=== PATIENT | female | born 1945 | race Asian ===

== ENCOUNTER 2020-12-28 00:20 | Inpatient (IN) | payer MEDICARE, BC, SELFPAY ==
[2020-12-28] VITALS (10 sets, daily range): BP systolic 107–198; BP diastolic 70–111; PULSE 90–121; RESP 12–20; TEMP 36.2–37.2; O2SAT 80–96
--- NOTE | 2020-12-28 00:51 | ED.GENADUL_ITS ---
Discharge Plan Disposition Patient Disposition: [facility] INPATIENT Condition: Stable Discharge Details Chief Complaint: Orthopedic Clinical Impression: Femur fracture, left ED Provider: Rigoberto Dean Home Meds and New Rx's Prescriptions: No Action No Known Home Meds RF: 0 Medical Decision Making This is a 75-year-old female who presents via EMS for left hip pain. Patient was with her daughter this evening who is a nurse, patient was using her walker when she turned/rotated, and suddenly felt pain in her left hip. She slowly slumped to the ground with the help of her daughter. She did not hit her head. She did not strike her left hip. Position of ease was to have her hip flexed, and externally rotated. Patient was given Tylenol via EMS IV, respiratory the ER for further assessment. Physical exam demonstrates a flexed left hip and externally rotated notably. It is crossed over her right leg. Notable deformity of the left femur, as well as suspected dislocation of the left hip. Pulses intact, sensation intact. Patient is notably guarded in her personality. She states very specifically that she does not have much trust in the medical system or hospitals in general. She is not forthcoming about her past medical history, and denies any medical problems. However in discussion with her daughter who is a nurse and who is at bedside, daughter states that the patient does have hypertension, asthma, and for the past few weeks and/or months has been taking oral prednisone for her left hip pain out of concern for sciatica. Daughter states that the patient normally lives alone independently, and does not share much about her medical problems. She lives alone in [place]. ultrasound was performed which identifies femur fracture, and also concern for hip joint abnormality. Patient is unable and/or unwilling to move the leg at this time from the crossed position, we will get a CT scan of the hip and femur. Patient will likely require admission. 1:20 AM While down at CAT scan the patient refused to have the CAT scan. Myself, nursing staff, and the patient's daughter spent a notable amount of time discussing with the patient the importance of imaging for further assessment. Patient refused to move her leg into a straight position, but eventually was agreeable to getting the CAT scan imaging. I did discuss with her the im portance of this imaging and proper positioning, for her safety. She understands this but has a very strong opinion on the matter. 2:30 AM Patient was eventually agreeable to allowing me to manipulate her leg back into position. She did allow me to give 4 mg of morphine, however she refused any sedation otherwise. Patient remains neurovascularly intact. Patient is now agreeable to admission. Discussed the case with Dr. San, he agrees on the need for surgery and agrees with admission here under the medicine team. Discussed the case with Dr. Fay, he agrees with the assessment and plan. I have extensively reviewed the treatment plan with the patient. I have addressed all patient concerns at this time. I have also discussed the plan with the admitting physician and they agree with the current assessment and plan and have agreed to assume responsibility for the patient. All parties demonstrate verbal understanding and agreement with our assessment and plan at this time. The documentation in this chart was dictated using [employer] dictation software. Please excuse any dictation errors. HPI General Date/Time Provider Initiated Documentation: 12/28/20 00:32 . HPI Narrative: This is a 75-year-old female who presents via EMS for left hip pain. Patient was with her daughter this evening who is a nurse, patient was using her walker when she turned/rotated, and suddenly felt pain in her left hip. She slowly slumped to the ground with the help of her daughter. She did not hit her head. She did not strike her left hip. Position of ease was to have her hip flexed, and externally rotated. Patient was given Tylenol via EMS IV, respiratory the ER for further assessment. Related Data Home Medications Medication Instructions Recorded Confirmed Unknown [No Known Home Meds] 12/28/20 12/28/20 Allergies Allergy/AdvReac Type Severity Reaction Status Date / Time No Known Allergies Allergy Unverified 12/28/20 01:57 General Stated Complaint: Orthopedic QUINN: 3 Review of Systems All systems reviewed & are unremarkable except as noted in HPI and below [facility] Social History Smoking/Tobacco Use Status: Never Smoking risk assessment performed?: Yes Alcohol Intake: never Substance use type: does not use Do you feel safe at home: Yes Do you feel safe in your relationship?: Yes Exam Narrative Exam Narrative: 1.Const: Well-nourished, Well-developed, appearing stated age 2.Eyes: PERRL, no conjunctival injection, and symmetrical lids. 3.ENT: Atraumatic external nose and ears. Moist MM. Neck: Symmetric, trachea midline, No thyromegaly. 4.CVS: +S1/S2, No murmurs or gallops. Peripheral pulses 2+ and equal in all ex tremities. Brisk capillary refill in all extremities. 5.RESP: Unlabored respiratory effort. Clear to auscultation bilaterally. No wheezes rales or rhonchi 6.GI: Soft, Nontender/Nondistended, No hepatosplenomegaly. No guarding or rebound. 7.MSK: Patient's left hip is flexed and externally rotated, notable deformity of the left femur, also notable deformity of the left hip. Tenderness in this area. Distal pulses are intact with a +1 pulses at dorsalis pedis and posterior tibial pulse at this time. Capillary refill intact and less than 3 seconds. Sensation intact. 8.Skin: Warm, Dry. No rashes or lesions. 9.Neuro: pattern puncher II-XII grossly intact. Sensation grossly intact, no focal neurologic deficits. 10.Psych: (AAO) x3. Appropriate mood and affect Course Vital Signs Vital signs: Vital Signs Temperature 37.1 C 12/28/20 00:22 Pulse 101 H 12/28/20 00:22 Respiratory Rate 20 12/28/20 00:22 Blood Pressure 198/108 H 12/28/20 00:22 Pulse Oximetry 95 12/28/20 00:22 Temperature 37.1 C 12/28/20 00:22 Temperature Source Skin 12/28/20 00:22 Pulse 101 H 12/28/20 00:22 Respiratory Rate 20 12/28/20 00:22 Respiratory Effort Non-Labored 12/28/20 00:31 Blood Pressure 198/108 H 12/28/20 00:22 Pulse Oximetry 95 12/28/20 00:22 Oxygen Delivery Method Room Air 12/28/20 00:22 Oxygen Flow Rate 0 12/28/20 00:22
--- NOTE | 2020-12-28 00:56 | DI.CT_ITS ---
Exam(s) CT PELVIC WO EXAM: CT PELVIC WO CLINICAL HISTORY: left hip pain, cant move leg, suspect fx/dislocati. TECHNIQUE: Imaging Protocol: Axial computed tomography images with coronal and sagittal reformatted images were created and reviewed CONTRAST MATERIAL: Intravenous: none Oral: None COMPARISON: No exams were available for comparison FINDING: PELVIS: OSSEOUS: There is no acute appearing angulated fracture in the proximal diaphysis of the left femur. The inter trochanteric and femoral neck regions are intact.. Opposite-right hip and visualized righ t femur appear intact. No sacral fractures. There is an acute appearing fracture of the right transverse process of L3. Nonacute appearing fract ures of the left transverse process is of L1 and L of the of L2 and L3 are noted. 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 No evidence of paraspinal hematoma nor free flui d nor hematoma elsewhere in the pelvis. The urinary bladder is distended. Uterus and adnexal region s are age-appropriate. No intrapelvic nor inguinal adenopathy. No evidence of bowel wall nor mesent segundo hematoma. Visualize lower aspect of the kidneys unremarkable. ANTERIOR ABDOMINAL WALL/GI:No evidence of significant anterior abdominal wall nor inguinal hernia in the pelvis evident. IMPRESSION: 1. Acute angulated fracture of the proximal left femur. 2. Fracture of the right transverse process of L3. 3. Other transverse process discontinuities which may or may not be posttraumatic. RADIATION DOSE DELIVERED: Total DLP DATA REPOSITORY: All CT scans at this facility are submitted to the National Radiology Data Registry (NRDR) Dose Index Registry (DIR) with the [employer] (ACR). RADIATION OPTIMIZATION: All CT scans at this facility use at least one of these dose optimization te chniques: automated exposure control; mA and/or kV adjustment per patient size (includes targeted exa ms where dose is matched to clinical indication); or iterative reconstruction.
--- NOTE | 2020-12-28 02:11 | DI.VRAD_ITS ---
PROCEDURE INFORMATION: Exam: CT Pelvis Without Contrast Exam date and time: 12/28/2020 1:04 AM Age: 75 years old Clinical indication: Pelvic pain and other: Left femur; Patient HX: Left hip pain, cant move leg, suspect fx/dislocati TECHNIQUE: Imaging protocol: Computed tomography images of the pelvis without contrast. Radiation optimization: All CT scans at this facility use at least one of these dose optimization techniques: automated exposure control; mA and/or kV adjustment per patient size (includes targeted exams where dose is matched to clinical indication); or iterative reconstruction. COMPARISON: No relevant prior studies available. FINDINGS: Stomach and bowel: Visualized small bowel and colon are unremarkable. Appendix: No evidence of appendicitis. Intraperitoneal space: Unremarkable. No free air. No significant fluid collection. Lymph nodes: Unremarkable. No enlarged lymph nodes. Urinary bladder: Normal. No mass. Reproductive: Normal as visualized. Bones/joints: Acute fracture of the left proximal femoral metadiaphysis. Age-indeterminate fracture clinically correlate. of the right L3 transverse process. Degenerative change of the lumbar spine with scoliosis. Soft tissues: Unremarkable. IMPRESSION: 1. Acute fracture of the left proximal femoral metadiaphysis. 2. Age-indeterminate fracture clinically correlate. of the right L3 transverse process. Dictated and Authenticated by: Efren Ugalde MD. Ordering:JOSE Franklin MD
--- NOTE | 2020-12-28 02:32 | W.PM.HP.N ---
Date of service: 12/28/20 Time of Service: 02:33 Assessment and Plan Assessment and plan (1) Fracture, femur closed, shaft: Start date: 12/28/20 Status: Acute Assessment and plan: This is a 75-year-old lady who was visiting her daughter and had a nontraumatic fracture of her left femur with simply turning while walking with a walker. She also has evidence of transverse processes fracture which is old over her back and may be secondary to moderate trauma. She had no trauma or fall during this episode. She was very hesitant to receive care but did have imaging confirming proximal femur shaft fracture. She will be seen by orthopedics after medically cleared with the patient appears to have increased bronchospasm presently and uncontrolled hypertension. Her EKG was interpreted by the ED physician has no acute changes. She is a full code. Qualifiers: Encounter type: initial encounter Fracture morphology: unspecified fracture morphology Laterality: left Qualified Code(s): S72.302A - Unspecified fracture of shaft of left femur, initial encounter for closed fracture (2) HTN (hypertension): Status: Chronic Assessment and plan: Chronic hypertension with patient on amlodipine by history and is to receive 5 mg of this medication with adjustment of medical therapy perioperatively by the hospitalist. If possible we should obtain her outpatient [place] list which is vague and on for. I will check on level and repeat EKG. Qualifiers: Hypertension type: essential hypertension Qualified Code(s): I10 - Essential (primary) hypertension (3) Asthma exacerbation: Status: Chronic Assessment and plan: Patient is having significant bronchospasm presently and states that allergies during the spring bother her more. She does not admit to chronic asthma treatment but does take rescue inhalers at home. She is on prednisone chronically for back and hip pain but also may take this for allergies. She is a vague historian. Forward chest x-ray will be obtained and we will give albuterol nebulizers with close follow-up. Qualifiers: Asthma severity: moderate Asthma persistence: persistent Qualified Code(s): J45.41 - Moderate persistent asthma with (acute) exacerbation History of Present Illness History of Present Illness Chief Complaint: Left hip pain Narrative: This is a 75-year-old female patient who lives in [place] but was visiting her daughter locally when she fell acute left hip pain with rotating while walking with her walker. She did not fall but was gently brought to the ground and EMS was called. She was brought to the ED for evaluation and was found to have her left hip flexed and partially externally rotated for comfort. She was refusing most care and was very vague with her history. She has no known home medication list though it is known that she takes prednisone ad carleen. as she needs for back pain and sciatica recently she does appear to have a aaron facies and appears of chronic steroid use. She also has asthma and does takes inhalers without a known home medication list. She does not sound like she takes controller inhaler but only rescue inhalers. Her smoking history is negative for primary or secondary exposure. Patient offers no further history is very vague and appears to guard or avoid conversation about medical problems. The blood said that she mistrust the medical system. She has a heavy accent and is [place] by history. Patient's daughter does give a history of patient being on amlodipine at an unknown dose for hypertension and the patient admits that she does use inhalers at home. Her home medication list is unknown. Review of Systems Narrative: 13 point review of systems otherwise unrevealing or stable. [facility] Medical History (Updated 12/28/20 @ 07:06 by Jun Fay) HTN (hypertension) Social History Smoking/Tobacco Use Status: Never Smoking risk assessment performed?: Yes Alcohol Intake: never Substance use type: does not use Do you feel safe at home: Yes Do you feel safe in your relationship?: Yes Meds Allergies and Home Medications Allergies Allergy/AdvReac Type Severity Reaction Status Date / Time No Known Allergies Allergy Unverified 12/28/20 01:57 Home Medications Medication Instructions Recorded Confirmed Type Unknown [No Known Home Meds] 12/28/20 12/28/20 History Exam Narrative Exam Narrative: General: Patient appears appropriate for age, small body build with diffuse muscle wasting and appearance of aaron facies as if on chronic steroids. Affect is anxious with poor focus and patient is poor historian. She has pressured speech. There may be a language barrier during conversation. She is in moderate distress with her left hip pain. She is alert and oriented at least to person and place. HEENT: Normocephalic, aaron facies, eyes with pupils equal and reactive light symmetrically, extraocular movement intact and sclera anicteric. External nose and ears normal. Oropharynx with moist mucosa. Neck: Supple without JVD. Back: Stooped posture with no CVA tenderness. Lungs: Diffuse inspiratory and expiratory coarse crackles with slight pursed lip breathing, increased expiratory phase with expiratory wheeze diffusely. No focalizing rales. No rhonchi. Fair aeration with bronchovesicular breath sounds diffusely. Heart: Distant heart sounds, regular rate and rhythm with no murmurs or gallops appreciated. Breast: Exam deferred. Abdomen: Soft, nontender to palpation with no palpable hepatosplenomegaly. Bowel sounds positive in all quadrants. Genitalia/rectal: Exam deferred. Extremities: Without clubbing, cyanosis or pitting edema. Left hip is partially flexed with pillow and externally rotated for comfort. Peripheral pulses intact. No joint swelling. Skin: Pale, warm and dry. No rashes noted. Neuro: Cranial nerves II through XII intact, no focalizing motor deficits. Psych: Anxious affect with pressured speech, no apparent depressed mood. No abnormal thought processes. Remote and recent memory appear to be grossly intact though patient is very vague in conversation which may be partially secondary to language barrier. Results Imaging Imaging Studies: Exam: CT Pelvis Without Contrast Exam date and time: 12/28/2020 1:04 AM Age: 75 years old Clinical indication: Pelvic pain and other: Left femur; Patient HX: Left hip pain, cant move leg, suspect fx/dislocati TECHNIQUE: Imaging protocol: Computed tomography images of the pelvis without contrast. Radiation optimization: All CT scans at this facility use at least one of these dose optimization techniques: automated exposure control; mA and/or kV adjustment per patient size (includes targeted exams where dose is matched to clinical indication); or iterative reconstruction. COMPARISON: No relevant prior studies available. FINDINGS: Stomach and bowel: Visualized small bowel and colon are unremarkable. Appendix: No evidence of appendicitis. Intraperitoneal space: Unremarkable. No free air. No significant fluid collection. Lymph nodes: Unremarkable. No enlarged lymph nodes. Urinary bladder: Normal. No mass. Reproductive: Normal as visualized. Bones/joints: Acute fracture of the left proximal femoral metadiaphysis. Age-indeterminate fracture clinically correlate. of the right L3 transverse process. Degenerative change of the lumbar spine with scoliosis. Soft tissues: Unremarkable. IMPRESSION: 1. Acute fracture of the left proximal femoral metadiaphysis. 2. Age-indeterminate fracture clinically correlate. of the right L3 transverse process. Dictated and Authenticated by: Efren Ugalde MD. Labs Result diagrams: 12/28/20 02:50 12/28/20 02:50 Last Vital Signs Temp 37.1 C 12/28/20 00:22 Pulse 98 H 12/28/20 01:52 Resp 16 12/28/20 01:52 BP 166/111 H 12/28/20 01:52 Pulse Ox 96 12/28/20 01:52
[2020-12-28 02:55] LABS: Source Nasal/Nares
[2020-12-28 02:57] LABS: Abs Immature Grans 0.13 10^3/uL (0.0-0.06); Absolute Basophil Count 0.04 10^3/uL (0.0-0.2); Absolute Monocyte Count 0.51 10^3/uL (0.1-0.8); Basophils % 0.2; HCT 35.8 % (36.0-46.0); HGB 12.1 g/dL (11.2-15.7); Immature Grans % 0.7; Lymphocytes % 2.1; MCH 30.3 pg (27.0-33.0); MCHC 33.8 % (32.0-36.0); MCV 89.7 fL (80-95); MPV 8.8 fL (8.0-11.0); Monocytes % 2.8; Neutrophils % 94.2; Nucleated RBC 0 %; Platelet Count 276 10^3/uL (130-400); RBC 3.99 10^6/uL (3.93-5.22); RDW 13.4 % (11.7-14.6); RDW-SD 44.3 fL; WBC 18.32 10^3/uL (4.4-10.8)
[2020-12-28 03:00] LABS: Absolute Lymphocyte Count 0.38 10^3/uL (1.2-3.4); Absolute Neutrophil Count 17.26 10^3/uL (1.2-6.7)
[2020-12-28 03:07] LABS: BUN 27 mg/dL (7-18); Calcium 8.5 mg/dL (8.5-10.1); Chloride 102 mmol/L (98-107); Estimated GFR 53.91 (mL/min/1.73m2); Glucose 166 mg/dL (74-106); Sodium 143 mmol/L (136-145)
[2020-12-28 03:08] LABS: Potassium 2.5 mmol/L (3.5-5.1)
[2020-12-28] MEDS: diazePAM 10 MG/2 ML SYR 5 MG IVP (03:23)
[2020-12-28 03:37] LABS: Bilirubin Negative (Negative); Blood Negative (Negative); Clarity Clear (Clear); Glucose 250 mg/dL (Negative); Ketones Negative (Negative); Leukocyte Esterase Negative (Negative); Nitrite Negative (Negative); Specific Gravity 1.025 (1.005-1.025); Urobilinogen 0.2 EU/dL (Up TO 0.2)
[2020-12-28] MEDS: POTASSIUM CHLORIDE 20 MEQ/100 ML BAG 50 MEQ IVPB (03:39)
[2020-12-28] MEDS: Normal Saline 500 ML 30 ML IV ×2 (03:41→07:14)
[2020-12-28 03:49] LABS: Bacteria Few HPF (Negative); C & S Indicated? Yes; Casts 3-5 Hyaline LPF (Negative); Crystals Negative HPF (Negative); Epithelial Cells Negative HPF (Negative); Mucus Trace (Negative)
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
[2020-12-28] MEDS: Albuterol 2.5 MG/3 ML INH SOLN VIAL UPD ×2 (06:49→14:02)
--- NOTE | 2020-12-28 07:15 | DI.RAD_ITS ---
Exam(s) XR PORTABLE CHEST AP EXAM: XR PORTABLE CHEST AP CLINICAL HISTORY: Bronchospasm with rales. TECHNIQUE: 2D digital imaging was performed. COMPARISON: No exams were available for comparison FINDINGS: Heart size is normal. The mediastinum is not widened. There is infiltrate in the right parahilar region. Left lung is clear. No pleural effusions. No pn eumothorax. Chest leads in place IMPRESSION: Right parahilar infiltrate. Infectious versus neoplasm. No pleural effusions. DATA REPOSITORY: RADIATION DOSE DELIVERED: All CT scans at this facility use at least one of these dose optimization techniques: automated exposure control; mA and/or kV adjustment per patient size (includes targeted e xams where dose is matched to clinical indication); or iterative reconstruction.
[2020-12-28] MEDS: Normal Saline Flush 10 ML SYR IVP ×2 (07:16→11:04)
[2020-12-28 07:17] LABS: Abs Immature Grans 0.12 10^3/uL (0.0-0.06); Absolute Basophil Count 0.06 10^3/uL (0.0-0.2); Absolute Lymphocyte Count 1.44 10^3/uL (1.2-3.4); Absolute Monocyte Count 0.69 10^3/uL (0.1-0.8); Basophils % 0.3; Eosinophils % 0.5; HCT 36.8 % (36.0-46.0); HGB 12.3 g/dL (11.2-15.7); Immature Grans % 0.6; Lymphocytes % 6.9; MCH 30.2 pg (27.0-33.0); MCHC 33.4 % (32.0-36.0); MCV 90.4 fL (80-95); MPV 9.1 fL (8.0-11.0); Monocytes % 3.3; Neutrophils % 88.4; Nucleated RBC 0 %; Platelet Count 290 10^3/uL (130-400); RBC 4.07 10^6/uL (3.93-5.22); RDW 13.5 % (11.7-14.6); RDW-SD 44.1 fL; WBC 20.82 10^3/uL (4.4-10.8)
[2020-12-28 07:22] LABS: ALT 40 U/L (14-59); AST 19 U/L (15-37); Albumin 3.2 g/dL (3.4-5.0); Alkaline Phosphatase 44 U/L (46-116); Anion Gap 7.9 mmol/L (3-11); BUN 28 mg/dL (7-18); Bilirubin, Total 0.6 mg/dL (0.2-1.0); CO2 30.1 mmol/L (21.0-32.0); CREATININE 0.9 mg/dL (0.55-1.02); Calcium 8.3 mg/dL (8.5-10.1); Chloride 105 mmol/L (98-107); Glucose 152 mg/dL (74-106); Potassium 3.2 mmol/L (3.5-5.1); Sodium 143 mmol/L (136-145); Total Protein 5.8 g/dL (6.4-8.2)
[2020-12-28 07:46] LABS: NT-proBNP 424 pg/mL (<300)
[2020-12-28 07:48] LABS: Magnesium 2.1 mg/dL (1.8-2.4); TSH (W/Ref FT4) 0.22 uIU/mL (0.36-3.74); Troponin I < 0.05 ng/mL (<0.06)
[2020-12-28 08:22] LABS: FREE T4 1.27 ng/dL (0.76-1.46)
[2020-12-28] MEDS: cefTRIAXone 2 GM/50 ML BAG IVPB (09:20)
[2020-12-28] MEDS: Potassium Chloride 20 MEQ TABCR 40 MEQ PO (09:21)
[2020-12-28 09:27] LABS: Procalcitonin < 0.1 ng/mL
[2020-12-28 09:52] LABS: COVID-19 PCR Negative (Negative)
[2020-12-28] MEDS: MORPHine 4 MG/ML SYR IVP (11:04)
[2020-12-28] MEDS: Omnipaque 350 MG/ML 100 ML BTL 60 ML IJ (11:27)
[2020-12-28] MEDS: Normal Saline - Diluent 50 ML VIAL IV (11:27)
--- NOTE | 2020-12-28 11:35 | DI.CT_ITS ---
Exam(s) CT CHEST PE CTA EXAM: CT CHEST PE CTA CLINICAL HISTORY: hyoxia, pneumonia. TECHNIQUE: Imaging Protocol: CT angiography of the chest was performed using pulmonary embolus isaiah col. Multi planar reconstructions were performed. CONTRAST MATERIAL: Intravenous: Omnipaque 350 Contrast volume: 60 cc COMPARISON: No exams were available for comparison FINDINGS: CHEST: PULMONARY ARTERIES: There are no intraluminal filling defects to suggest acute pulmonary emboli. LUNGS: There is prominent infiltrate in the right upper lobe posterior segment as well as in the supe rior segment of the right lower lobe and also involving the posterior and lateral basal segments of t he right lower lobe. No pleural effusion.. In the opposite-left lung there is mild patchy infiltrate in the left upper lobe as well as left lowe r lobe including the posterior basal segment. No pleural effusion. MEDIASTINUM: Large retrocardiac hiatal hernia is noted. There is no obvious hilar nor mediastinal joesph nopathy. No axillary adenopathy. No supraclavicular adenopathy. CARDIAC: Heart size is upper normal. There is no pericardial effusion.Caliber of the thoracic aorta is within normal limits. There is no significant shift of the interventricular septum. PARTIALLY VISUALIZED UPPERMOST ABDOMEN: No obvious findings OSSEOUS: There are multiple healing left rib fractures involving the posterior aspect of left ribs nu mbers 9, 10, 11, and 12. Also fracture nondisplaced of the left transverse process of L1, as well as the partially visualized-partially included L2.There is also a nonacute appearing compression fractur e of what is probably L1.. IMPRESSION: 1. No evidence of acute pulmonary emboli..Main finding here are bilateral infiltrates as described ab ove, more prominent on the right than the left side involving both the right upper and right lower lo bes and with also significant involvement of the left lung as described above. There are no associate d pleural effusions nor intrathoracic adenopathy. 2. Moderate-large retrocardiac hiatal hernia is noted. 3. Multiple healing left-sided rib fractures involving ribs 9 through 12, inclusive as well as the vi sualized ipsilateral left transverse processes of L1 and L2. Cannot tell below this level as is not i ncluded in the field of view. There is also a nonacute appearing compression fracture of what is eith er T12 or L1. RADIATION DOSE DELIVERED: 321.65mGy.cm Total DLP DATA REPOSITORY: All CT scans at this facility are submitted to the National Radiology Data Registry (NRDR) Dose Index Registry (DIR) with the [employer] (A[employer]). RADIATION OPTIMIZATION: All CT scans at this facility use at least one of these dose optimization te chniques: automated exposure control; mA and/or kV adjustment per patient size (includes targeted exa ms where dose is matched to clinical indication); or iterative reconstruction.
[2020-12-28] MEDS: predniSONE 20 MG TAB 40 MG PO (11:39)
[2020-12-28] MEDS: QUEtiapine 25 MG TAB PO (11:39)
[2020-12-28] MEDS: AZITHROMYCIN 500 MG in Normal Saline 250 ML 250 MG IVPB (13:45)
--- NOTE | 2020-12-28 14:43 | DSE_ITS ---
Date of service: 12/28/20 Time of Service: 14:43 DS: Diagnosis Discharge Diagnosis (1) Fracture, femur closed, shaft: Status: Acute (2) HTN (hypertension): Status: Chronic (3) Asthma exacerbation: Status: Chronic Discharge Plan Disposition Patient Disposition: OTHER Condition: Stable Discharge Details Reason For Visit: FEMUR SHAFT FRACTURE, Pneumonia Admit Date/Time: 12/28/20 02:19 Admit Provider: Jun Fay Attending Provider: Jun Fay Primary Care Provider: Chely,Local Hospital Course Hospital Course: This is a 75-year-old female patient who lives in [place] but was visiting her daughter locally when she fell acute left hip pain with rotating while walking with her walker.? She did not fall but was gently brought to the ground and EMS was called.? She was brought to the ED for evaluation and was found to have her left hip flexed and partially externally rotated for comfort.? She was refusing most care and was very vague with her history.? She has no known home medication list though it is known that she takes prednisone ad carleen and prn albuterol MDI for asthma.?Her daughter also thought she was taking amlodipine but the patient denied this. Her smoking history is negative for primary or secondary exposure.? Patient offers no further history is very vague and appears to guard or avoid conversation about medical problems.? Her daughter, who is a nurse, said that her mother mistrusts the medical system.? She has a heavy accent and is Irish by history. Her WBC count was 20.82. Hgb 12.3. Creatinine 0.9. RA O2 saturation of 80; improved to low 90's with 2L supplemental O2. CXR showed L perihilar infiltra te. CT chest was negative for pulmonary emboli. The main findings were bilateral infiltrates; most prominently in the right upper lobe and lower lobe, but also in the left upper lobe. Also noted were healing left-sided rib fxs 9-12 and left transverse processes of L1 and L2 fxs The pt did incur a fall several months ago and fracture her wrist. Anesthesia at [facility] was concerned about her respiratory status and felt surgery would be best performed at a tertiary center with anesthesiologists and pulmonologists in house. She was accepted at [facility] in [facility] under the care of the spitalist team. The admitting physician is Dr. Valerio. Both her daughter and son were involved in the discussion of her care. The family would prefer that upon d/c from [facility] the patient return to [place], [place] to stay with the daughter and receive home health nursing and PT. Home Meds and New Rx's Prescriptions: No Action No Known Home Meds RF: 0 Discharge Instructions Activity:: Bedrest Equipment/Supplies:: No Equipment Needed Diet:: As Tolerated Discharge Orders Discharge Orders: Discharge Order (Routine); Ordered 12/28/20 Ordered By: Vasquez Headley DS: Summary Time Spent with Patient providing and/or coordinating discharge services: Greater than 30 minutes Status at Discharge Functional status at discharge: bed bound Overall status at discharge: patient is not back to baseline Mental Status: mental status grossly normal Speech and Movement: speech clear Mood: anxious mood Affect: blunted Exam Psych Mental Status: mental status grossly normal Speech and Movement: speech clear Mood: anxious mood Affect: blunted DS: Data Vitals/I&O Vitals and I&O: Vital Signs Temperature 36.5 C 12/28/20 11:38 Temperature Source Temporal Artery Scan 12/28/20 11:38 Pulse 113 H 12/28/20 11:38 Pulse Rhythm Regular 12/28/20 10:00 Respiratory Rate 18 12/28/20 11:38 Respiratory Effort Non-Labored 12/28/20 10:00 Respiratory Depth Normal 12/28/20 10:00 Respiratory Pattern Normal 12/28/20 10:00 Blood Pressure 133/81 12/28/20 11:38 Pulse Oximetry 92 12/28/20 11:38 Oxygen Delivery Method Nasal Cannula 12/28/20 11:38 Oxygen Flow Rate 2 12/28/20 11:38 Pain Level 1 12/28/20 11:38 Comment 12/28/20 08:30 Intake & Output 12/27/20 12/28/20 12/28/20 23:59 11:59 23:59 Intake Total 117.5 / 117.5 Output Total 450 / 550 100 / 550 Balance -332.5 / -432.5 -100 / -432.5 Weight 44.5 kg Intake: IV 117.5 / 117.5 Output: Urine 450 / 550 100 / 550 Other: Urine Color Yellow Dark [place] Urine Appearance Clear Clear Data Completed and Pending Labs on day of discharge: Labs from last 24 hours 05/12/28/20 12/28/20 Unknown 07:16 06:36 WBC RBC Hgb Hct MCV MCH MCHC RDW Plt Count MPV Immature Gran % Neutrophils % Lymphocytes % Monocytes % Eosinophils % Basophils % Nucleated RBC % Absolute Neutrophils Absolute Lymphocytes Absolute Monocytes Absolute Eosinophils Absolute Basophils Cord ABG pH Cancelled Cord ABG pCO2 Cancelled Cord ABG pO2 Cancelled Cord ABG Base Excess Cancelled Sodium Potassium Chloride Carbon Dioxide Anion Gap BUN Creatinine Estimated GFR/1.73 m2 Glucose Hemoglobin A1c Calcium Magnesium Total Bilirubin AST ALT Alkaline Phosphatase Troponin I NT-Pro-B Natriuret Pep Total Protein Albumin Procalcitonin < 0.1 TSH Free T4 Urine Color Urine Clarity Urine pH Ur Specific [place] Urine Protein Urine Ketones Urine Blood Urine Nitrite Urine Bilirubin Urine Urobilinogen Ur Leukocyte Esterase Urine RBC Urine WBC Ur Epithelial Cells Urine Crystals Urine Bacteria Urine Casts Urine Mucus Ur Culture Indicated? Urine Glucose COVID-19 Source SARS-CoV-2 (PCR) Patient ABO/Rh AB Positive Antibody Screen Negative 12/28/20 12/28/20 12/28/20 06:36 06:36 06:36 WBC 20.82 H RBC 4.07 Hgb 12.3 Hct 36.8 MCV 90.4 MCH 30.2 MCHC 33.4 RDW 13.5 Plt Count 290 MPV 9.1 Immature Gran % 0.6 Neutrophils % 88.4 Lymphocytes % 6.9 Monocytes % 3.3 Eosinophils % 0.5 Basophils % 0.3 Nucleated RBC % 0 Absolute Neutrophils 18.40 H Absolute Lymphocytes 1.44 Absolute Monocytes 0.69 Absolute Eosinophils 0.10 Absolute Basophils 0.06 Cord ABG pH Cord ABG pCO2 Cord ABG pO2 Cord ABG Base Excess Sodium 143 Potassium 3.2 L Chloride 105 Carbon Dioxide 30.1 Anion Gap 7.9 BUN 28 H Creatinine 0.9 Estimated GFR/1.73 m2 >= 60.00 Glucose 152 H Hemoglobin A1c Calcium 8.3 L Magnesium Total Bilirubin 0.6 AST 19 ALT 40 Alkaline Phosphatase 44 L Troponin I < 0.05 NT-Pro-B Natriuret Pep 424 H Total Protein 5.8 L Albumin 3.2 L Procalcitonin TSH Free T4 Urine Color Urine Clarity Urine pH Ur Specific [place] Urine Protein Urine Ketones Urine Blood Urine Nitrite Urine Bilirubin Urine Urobilinogen Ur Leukocyte Esterase Urine RBC Urine WBC Ur Epithelial Cells Urine Crystals Urine Bacteria Urine Casts Urine Mucus Ur Culture Indicated? Urine Glucose COVID-19 Source SARS-CoV-2 (PCR) Patient ABO/Rh Antibody Screen 12/28/20 12/28/20 12/28/20 06:36 03:30 02:50 WBC 18.32 H RBC 3.99 Hgb 12.1 Hct 35.8 L MCV 89.7 MCH 30.3 MCHC 33.8 RDW 13.4 Plt Count 276 MPV 8.8 Immature Gran % 0.7 Neutrophils % 94.2 Lymphocytes % 2.1 Monocytes % 2.8 Eosinophils % 0.0 Basophils % 0.2 Nucleated RBC % 0 Absolute Neutrophils 17.26 H Absolute Lymphocytes 0.38 L Absolute Monocytes 0.51 Absolute Eosinophils 0.00 Absolute Basophils 0.04 Cord ABG pH Cord ABG pCO2 Cord ABG pO2 Cord ABG Base Excess Sodium Potassium Chloride Carbon Dioxide Anion Gap BUN Creatinine Estimated GFR/1.73 m2 Glucose Hemoglobin A1c Calcium Magnesium 2.1 Total Bilirubin AST ALT Alkaline Phosphatase Troponin I NT-Pro-B Natriuret Pep Total Protein Albumin Procalcitonin TSH 0.22 L Free T4 1.27 Urine Color Yellow Urine Clarity Clear Urine pH 7.0 Ur Specific [place] 1.025 Urine Protein 30 H Urine Ketones Negative Urine Blood Negative Urine Nitrite Negative Urine Bilirubin Negative Urine Urobilinogen 0.2 Ur Leukocyte Esterase Negative Urine RBC 3-5 H Urine WBC 3-5 Ur Epithelial Cells Negative Urine Crystals Negative Urine Bacteria Few Urine Casts 3-5 hyaline Urine Mucus Trace Ur Culture Indicated? Yes Urine Glucose 250 H COVID-19 Source SARS-CoV-2 (PCR) Patient ABO/Rh Antibody Screen 12/28/20 12/28/20 12/28/20 02:50 02:45 02:30 WBC RBC Hgb Hct MCV MCH MCHC RDW Plt Count MPV Immature Gran % Neutrophils % Lymphocytes % Monocytes % Eosinophils % Basophils % Nucleated RBC % Absolute Neutrophils Absolute Lymphocytes Absolute Monocytes Absolute Eosinophils Absolute Basophils Cord ABG pH Cord ABG pCO2 Cord ABG pO2 Cord ABG Base Excess Sodium 143 Potassium 2.5 L* Chloride 102 Carbon Dioxide 30.0 Anion Gap 11.0 BUN 27 H Creatinine 1.0 Estimated GFR/1.73 m2 53.91 Glucose 166 H Hemoglobin A1c 6.0 H Calcium 8.5 Magnesium Total Bilirubin AST ALT Alkaline Phosphatase Troponin I NT-Pro-B Natriuret Pep Total Protein Albumin Procalcitonin TSH Free T4 Urine Color Urine Clarity Urine pH Ur Specific [place] Urine Protein Urine Ketones Urine Blood Urine Nitrite Urine Bilirubin Urine Urobilinogen Ur Leukocyte Esterase Urine RBC Urine WBC Ur Epithelial Cells Urine Crystals Urine Bacteria Urine Casts Urine Mucus Ur Culture Indicated? Urine Glucose COVID-19 Source Nasal/nares SARS-CoV-2 (PCR) Negative Patient ABO/Rh Antibody Screen 12/28/20 03:30 Urine - Reflex from Urine Culture - Pending Preliminary micro results at discharge 12/28/20 03:30 Urine Culture - Pending Urine - Reflex from [facility] Medical History HTN (hypertension) Social History Smoking/Tobacco Use Status: Never Smoking risk assessment performed?: Yes Alcohol Intake: never Substance use type: does not use Do you feel safe at home: Yes Do you feel safe in your relationship?: Yes
--- NOTE | 2020-12-28 16:03 | NUR.NOTE ---
Called and gave report to Nurse Josefina and pt left with EMS about 10 minutes. Nursing Note:
== END 2020-12-28 15:43 | disposition other institution (70) | DRG 534 ==
LOC: ER 03:37 → MS 03:42
PROVIDERS: Admitting Provider Family Medicine; Emergency Provider Student in an Organized Health Care Education/Training Program; Visit Provider Family Medicine
DX: S72.302A Unspecified fracture of shaft of left femur, initial encounter for closed fracture (principal); J45.41 Moderate persistent asthma with (acute) exacerbation; I10 Essential (primary) hypertension; X50.1XXA Overexertion from prolonged static or awkward postures, initial encounter; Z20.822 Contact with and (suspected) exposure to COVID-19
CPT/HCPCS: 36415; 51702; 71275; 80048; 80053; 84145; 86850; 86900; 86901; 87635; 96365; 96375; 96376; 99221; 99285; 71045; 72192; 81003; 81015; 83036; 83735; 83880; 84439; 84443; 84484; 85025; 87086; 99236; J0456; J2270; J3360; J3480; J3490; J7512; J7613